=== PATIENT | female | born 1990 ===

== ENCOUNTER 2017-03-26 20:47 | Inpatient (IN) ==
[2017-03-26] MEDS ORDERED: BUTORPHANOL 2 MG/ML VIAL IV PRN (21:07)
[2017-03-26] MEDS ORDERED: ONDANSETRON 4 MG/2 ML VIAL IV PRN (21:07)
[2017-03-26] MEDS ORDERED: MEPERIDINE 50 MG/1 ML VIAL IV PRN (21:07)
[2017-03-26] MEDS ORDERED: SODIUM CHLORIDE 0.9% 100 ML IV ONE (21:08)
[2017-03-26] MEDS ORDERED: AMPICILLIN 2,000 MG VIAL ONE (21:08)
[2017-03-26] MEDS ORDERED: OXYTOCIN/LR 30 UNIT/1,000 ML BAG IV PRN (21:10)
[2017-03-26] MEDS ORDERED: OXYTOCIN/LR 20 UNIT/1,000 ML BAG IV PRN (21:10)
[2017-03-26] MEDS ORDERED: LACTATED RINGERS 1,000 ML IV SCH (21:30)
[2017-03-26] MEDS ORDERED: AMPICILLIN INJ 2,000 MG in SODIUM CHLORIDE 0.9% 50 ML IV SCH (21:30)
[2017-03-26 22:13] LABS: Basophils % 0.1 % (0.0-0.8); Eosinophils % 0.5 % (0.00-10.9); Hematocrit 36.7 VOL% (35.7-47.0); Hemoglobin 12.5 GM/DL (12.0-16.0); Immature Granulocytes % 0.8 %; Immature Granulocytes Absolute 0.07 #; Lymphocytes # 1.4 10*3/uL (1.4-4.0); Lymphocytes % 15.5 % (21.3-54.2); Mean Corpuscular HGB Conc 34.1 GM/DL (32-36); Mean Corpuscular Hemoglobin 33 PG (27-34); Mean Corpuscular Volume 96.1 FL (87-102); Mean Platelet Volume 10.7 FL (9.6-12.0); Monocytes # 0.7 10*3/uL (0.11-0.8); Monocytes % 8.2 % (1.7-12.7); Neutrophils # 6.6 10*3/uL (1.4-7.4); Neutrophils % 74.9 % (38.7-73.9); Platelet Count 283 T/CUMM (130-400); Red Blood Count 3.82 MC/CUMM (3.8-5.5); Red Cell Distribution Width 12.9 % (9.3-17.3); White Blood Count 8.8 T/CUMM (4-12)
[2017-03-26 22:38] LABS: Alanine Aminotransferase 14 U/L (13-56); Albumin 2.5 G/DL (3.4-5.0); Alkaline Phosphatase 145 U/L (45-117); Aspartate Amino Transferase 10 U/L (0-37); Bilirubin,Total < 0.39 MG/DL (0.2-1.0); Blood Urea Nitrogen 7 MG/DL (7-18); Calcium 9.2 MG/DL (8.5-10.1); Glucose 84 MG/DL (74-106); Osmolality,Calculated 275.4 MOS/KG (273-304); Potassium 3.8 MMOL/L (3.5-5.1); Sodium 140 MMOL/L (136-145); Total Protein 6.4 G/DL (6.4-8.3)
[2017-03-26 22:50] LABS: Apearance,Urine Slightly Hazy (Clear); Bacteria,Urine Few /HPF (Few); Bilirubin,Urine Negative (Negative); Blood, Urine Negative (Negative); Glucose,Urine (UA) Negative (Negative); Ketones,Urine 5 mg/dL (Negative); Mucus,Urine Occasional /LPF (Occasional); Nitrite,Urine Positive (Negative); Protein,Urine Negative; RBC,Urine 4 /HPF (0-4); Squamous Epithelial Cell,Urine Occasional /HPF (0-10); Urine Color Yellow (Yellow); Urine Specific Gravity 1.019 (1.001-1.035); WBC,Urine 7 /HPF (0-6)
[2017-03-26 23:22] LABS: HIV Antigen/Antibody Result Nonreactive (Nonreactive); Hepatitis B Surface Ag Result Negative (Negative); Rubella Antibody IgG 15.2 IU/ML
--- NOTE | 2017-03-27 00:29 | OB/GYN History & Physical ---
History of Present Illness Chief complaint: Spontaneous rupture membranes History of present illness: Ms. Anaya is a 27 year old female Patient presented with spontaneous rupture membranes, EDC 05/01/2017 at approximately 35 weeks gestation. Pelvic exam was performed on admission patient is approximately 3-4 cm dilated. heart tones category 1. No vaginal bleeding noted. Contractions were present every 3-5 minutes apart. Patient was allowed to go into labor spontaneously, IV ampicillin was also initiated. Risks benefits were thoroughly discussed nursery was contacted all parties are in agreement. Home Medications Medication Instructions Recorded Confirmed Type Vit No.124/Iron/Folic 1 tablet PO DAILY MDD one tab 03/26/17 03/26/17 History [ Vitamin Tablet] Allergies Allergy/AdvReac Type Severity Reaction Status Date / Time No Known Allergies Allergy Verified 03/26/17 21:04 Medical,Surgical,& Family Hx - Medical History Endocrine: No history of: Diabetes Mellitus (NIDDM) (gestational diabetic) Musculoskeletal: No history of: Amputation Reproductive: No history of: Complication - Surgical History HEENT Surgeries: Patient denies: Thyroid Surgery Abdominal Surgeries: Surgical HX of: Abdominal Surgery, Cholecystectomy Reproductive Surgeries: Patient denies;: Section, Gynecologic Surgery - Family History Family History: Reports;: Family Cancer (mgm), Family Diabetes (mom) Denies;: Family Anesthesia Reaction, Family Heart Disease, Family Hematology , Family Hypertension, Family Psychiatric Problems, Family Stroke, Additional Family History - Social History Smoking Status: Never smoker Frequency of Alcohol Use: None Type of Drug Use: None 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 - Constitutional Vitals: Vital Signs Temp Pulse Resp BP Pulse Ox 03/27/17 00:00 98.6 F 110 H 17 131/70 03/26/17 21:12 98.3 F 90 18 125/57 99 General appearance: no acute distress - Head Head exam: Present: normal inspection - Eye Eye exam: Present: EOMI Pupils: Present: MARIA D - ENT ENT exam: Present: normal exam - Neck Neck exam: Present: normal inspection - Respiratory Respiratory exam: Present: clear to auscultation bilaterally - Breast Breasts: as per HPI Menstruation: as per HPI - Cardiovascular Cardiovascular exam: Present: regular rate and rhythm - GI/Abdominal GI/Abdominal exam: Present: normal bowel sounds - Extremities Exam Extremities exam: Present: normal inspection - Back Exam Back exam: Present: normal inspection - Neurological Exam Neurological exam: Present: oriented X3, normal gait - Psychiatric Psychiatric exam: Present: normal affect - Skin Skin exam: Present: normal color Assessment and Plan (1) Spontaneous rupture of membranes Status: Acute Assessment and plan: Anticipate vaginal delivery, nurse was notified, IV ampicillin was at initiated. Epidural will be obtained if patient request. Current Visit: Yes Results - Labs CBC & BMP: 03/26/17 21:32 03/26/17 21:32 Quality Measures - VTE Contraindication to Pharmacological VTE Prophylaxis: Clinical assessment deems Pt at low risk, no prophalaxis needed
--- NOTE | 2017-03-27 00:53 | Event Note ---
Stage I of labor Admitted with spontaneous rupture membranes at 35 weeks EDC is 05/01/2017 Contractions every 3-5 minutes apart IV ampicillin IV narcotic heart tones category 1 IV Pitocin was initiated at 9+ cm Stage II Male 7 lbs. 5 oz. Apgars were 8 and 1 minute 9 at 5 minutes Cord blood and cord gas obtained Delivery time `1240am Stage III No lacerations Estimated blood loss 250 3 cord vessels Placenta delivered manually Mother stable nurses in attendance
[2017-03-27] MEDS ORDERED: LANOLIN 50% CREAM 0.3 OZ TUBE TOP PRN (00:54)
[2017-03-27] MEDS ORDERED: MEASLES/MUMPS/RUBELLA VACCINE 0.5 ML VIAL SUBCUT ONE (00:54)
[2017-03-27] MEDS ORDERED: HYDROCORTISONE 2.5% RECTAL CREAM 30 GM TUBE TOP PRN (00:54)
[2017-03-27] MEDS ORDERED: RHO(D) IMMUNE GLOBULIN 300 MCG SYRINGE IM ONE (00:54)
[2017-03-27] MEDS ORDERED: BENZOCAINE 20%/MENTHOL 0.5% SPRAY 56 GM CAN TOP PRN (00:54)
[2017-03-27] MEDS ORDERED: DIPH/TET/ACEL PERT BOOSTER VACCINE 0.5 ML VIAL IM ONE (00:54)
[2017-03-27] MEDS ORDERED: WITCH HAZEL PADS 100/JAR TOP PRN (00:54)
[2017-03-27] MEDS ORDERED: ONDANSETRON 4 MG/2 ML VIAL IV PRN (00:54)
[2017-03-27] MEDS ORDERED: OXYTOCIN/LR 20 UNIT/1,000 ML BAG IV ONE (00:54)
[2017-03-27] MEDS ORDERED: BISACODYL 10 MG SUPP RECTAL PRN (00:54)
[2017-03-27] MEDS ORDERED: oxyCODONE/ACETAMINOPHEN 5-325 MG TABLET PO PRN (00:54)
[2017-03-27] MEDS ORDERED: ACETAMINOPHEN 325 MG TABLET PO PRN (00:54)
[2017-03-27] MEDS: IBUPROFEN 800 MG TABLET PO PRN ×2 (02:16→23:05)
[2017-03-27] MEDS: oxyCODONE/ACETAMINOPHEN 5-325 MG TABLET PO PRN ×2 (02:17→23:15)
[2017-03-27 04:12] LABS: Basophils % 0.2 % (0.0-0.8); Hematocrit 36.5 VOL% (35.7-47.0); Hemoglobin 12.3 GM/DL (12.0-16.0); Immature Granulocytes % 0.6 %; Immature Granulocytes Absolute 0.09 #; Lymphocytes % 6.2 % (21.3-54.2); Mean Corpuscular HGB Conc 33.7 GM/DL (32-36); Mean Corpuscular Hemoglobin 33 PG (27-34); Mean Corpuscular Volume 98.1 FL (87-102); Mean Platelet Volume 10.7 FL (9.6-12.0); Monocytes # 0.7 10*3/uL (0.11-0.8); Monocytes % 4.6 % (1.7-12.7); Neutrophils # 14.1 10*3/uL (1.4-7.4); Neutrophils % 88.4 % (38.7-73.9); Platelet Count 293 T/CUMM (130-400); Red Blood Count 3.72 MC/CUMM (3.8-5.5); Red Cell Distribution Width 12.7 % (9.3-17.3); White Blood Count 15.9 T/CUMM (4-12)
[2017-03-27] MEDS: DOCUSATE SODIUM 100 MG CAPSULE PO SCH ×2 (08:20→21:00)
--- NOTE | 2017-03-27 09:16 | OB/GYN Progress Note ---
Assessment and Plan (1) Vaginal delivery Status: Acute Assessment and plan: Initiate routine orders. 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 Bonding well with infant. Exam CLINICAL DATA ASSISTANT - Constitutional Vitals: Vital Signs Temp Pulse Resp BP Pulse Ox 03/27/17 07:23 97.7 F 87 18 110/64 97 03/27/17 05:00 97.8 F 82 18 120/70 98 03/27/17 04:00 97.9 F 81 18 113/64 98 03/27/17 03:00 97.9 F 84 18 128/70 98 03/27/17 02:30 97.5 F L 82 18 132/68 98 03/27/17 02:00 97.4 F L 80 18 133/69 98 03/27/17 00:00 98.6 F 110 H 17 131/70 03/26/17 21:12 98.3 F 90 18 125/57 99 General appearance: no acute distress - Antepartum / Post Post Exam Breast: bilateral: normal Abdomen obstetrics: Present: bowel sounds normal Vagina: Present: discharge (Moderate lochia rubra) Uterus exam: Present: enlarged (Fundus firm and midline) Anus/Rectum: Present: normal perianal skin - Respiratory Respiratory exam: Present: clear to auscultation bilaterally - Cardiovascular Cardiovascular exam: Present: regular rate and rhythm - GI/Abdominal GI/Abdominal exam: Present: normal bowel sounds, soft - Extremities Exam Extremities exam: Present: normal inspection - Neurological Exam Neurological exam: Present: alert, oriented X3 - Psychiatric Psychiatric exam: Present: normal affect, normal mood - Skin Skin exam: Present: normal color, warm Results - Labs CBC & BMP: 03/27/17 03:58 03/26/17 21:32
[2017-03-27] MEDS ORDERED: NITROFURANTOIN MACRO/MONO 100 MG CAPSULE PO SCH ×2 (16:07→21:00)
[2017-03-28] MEDS: DOCUSATE SODIUM 100 MG CAPSULE PO SCH ×3 (08:41→21:32)
[2017-03-28] MEDS: NITROFURANTOIN MACRO/MONO 100 MG CAPSULE PO SCH ×2 (08:42→21:31)
--- NOTE | 2017-03-28 09:00 | OB/GYN Progress Note ---
Assessment and Plan (1) Vaginal delivery Status: Acute Assessment and plan: Initiate routine orders. 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 Bonding well with infant Exam PAINT ROLLER COVERMAKER - Constitutional Vitals: Vital Signs Temp Pulse Resp BP Pulse Ox 03/28/17 07:14 97.4 F L 78 20 119/66 97 03/28/17 04:15 98.0 F 70 18 107/58 98 03/28/17 00:00 98.2 F 85 18 104/57 98 03/27/17 20:00 97.7 F 85 18 105/50 98 03/27/17 15:39 98.4 F 80 20 102/63 98 03/27/17 11:24 98.4 F 78 20 91/53 98 General appearance: no acute distress - Antepartum / Post Post Exam Breast: bilateral: normal Vagina: Present: normal moisture, discharge (Light lochia rubra) Uterus exam: Present: enlarged (Fundus firm and midline) Anus/Rectum: Present: normal perianal skin - Gyencological / Post Surgical Post Surgical Exam Lungs: bilateral: normal Chest: Normal S1, Normal S2 Extremities PAINT ROLLER COVERMAKER: Present: normal Abdomen obstetrics progress note: Present: normal appearance Incision OB: Present: normal, intact - Neck Neck exam: Present: normal inspection - Respiratory Respiratory exam: Present: clear to auscultation bilaterally - Cardiovascular Cardiovascular exam: Present: regular rate and rhythm - GI/Abdominal GI/Abdominal exam: Present: normal bowel sounds, soft - Extremities Exam Extremities exam: Present: normal inspection - Neurological Exam Neurological exam: Present: alert, oriented X3 - Psychiatric Psychiatric exam: Present: normal affect, normal mood - Skin Skin exam: Present: normal color, warm Results - Labs CBC & BMP: 03/27/17 03:58 03/26/17 21:32
[2017-03-28] MEDS: IBUPROFEN 800 MG TABLET PO PRN (19:38)
[2017-03-29 07:21] VITALS: BP 116/63
[2017-03-29] MEDS: NITROFURANTOIN MACRO/MONO 100 MG CAPSULE PO SCH (08:55)
[2017-03-29] MEDS: DOCUSATE SODIUM 100 MG CAPSULE PO SCH (08:55)
[2017-03-29] MEDS: IBUPROFEN 800 MG TABLET PO PRN (08:57)
--- NOTE | 2017-03-29 09:22 | Discharge Summary ---
Hospital Course - Hospital Course Hospital Course: Ms. Anaya presented to the labor department in active labor. She subsequently delivered a viable with no complications. She has followed a normal course and she is not well. Her bleeding is minimal with no odor. Her vital signs and lab values are stable. She is ambulating without difficulty. Her fundus is firm and midline. She is bonding well with her infant. Contraception options has been discussed with this patient and she desires to use the Depo-Provera. Patient will receive a Depakote injection prior to discharge. She will be discharged to home with prescriptions for pain and a follow-up appointment in our office. Diagnosis - Discharge Diagnosis (1) Vaginal delivery Status: Acute Specialty Discharge - Follow Up or Referrals Follow up with: Rafa Menard MD [Physician] - (Follow up in 6 weeks.) Discharge Plan - Discharge Data Disposition: Disch To Home/Self Care Condition at Discharge: Stable Discharge Diet: advance to your usual diet, regular diet Activity: resume usual activities as tolerated Hygiene: no restrictions, may shower Weight Bearing at Discharge: weight bear as tolerated Driving: no restrictions Contact your physician if you experience:: fever over 101, Shortness of breath, pain uncontrolled by pain medications - Discharge Medications New Acetamin/Codeine 300-30 Tab [Tylenol/Codeine #3] 2 tablet PO Q4H PRN #30 tablet PRN Reason: Pain Mild To Moderate (1-7) Ibuprofen Tab [Motrin Tab] 800 mg PO Q6H PRN #30 tablet PRN Reason: Pain Moderate (4-7) No Action Vit No.124/Iron/Folic [ Vitamin Tablet] 1 tablet PO DAILY MDD one tab - Follow Up or Referral - Forms/Instructions Instructions: Depression (GEN), Perineal Care (DC), Vaginal Delivery (DC), Bleeding (DC) Exam - Constitutional Vitals: Period Temp Pulse Resp BP Sys/Solomon Pulse Ox Last 24 Hr 97.3 F-98.9 F 78-93 18-20 108-137/60-78 97-99 General appearance: no acute distress - Head Head exam: Present: normal inspection - Respiratory Respiratory exam: Present: clear to auscultation bilaterally - Cardiovascular Cardiovascular exam: Present: regular rate and rhythm - GI/Abdominal GI/Abdominal exam: Present: normal bowel sounds, soft - Extremities Exam Extremities exam: Present: normal inspection - Back Exam Back exam: Present: normal inspection - Neurological Exam Neurological exam: Present: alert, oriented X3 - Psychiatric Psychiatric exam: Present: normal affect, normal mood - Skin Skin exam: Present: normal color, warm DS: Provider Date of admission: 03/26/17 21:07 Primary care physician: Jinny Crouch MD Attending physician on admission: Rafa Menard MD Consults: 03/27/17 00:54 Consult to General Milling Superintendent [CONS] Routine Consult General Milling Superintendent: Breast Feeding Discharging clinician: Marian Sandoval CNM Expected date of discharge: 03/29/17
--- NOTE | 2017-03-29 18:18 | Pathology Report from [facility] ---
[employer] ACCESSION # : [id number] PATIENT NAME : Mateo Horne ORDERING DR : GENEVIEVE CHARLES MD CLINICAL HX: IUP @ 34-6/7 weeks. Spontaneous rupture of membranes. Active labor. Gestational diabetic. POST-OP DX: Same SPECIMEN INFO: Placenta GROSS DESCRIPTION: Received fresh labeled with the patients name and consists of a 614 gram placenta which measures 19.5 x 18.0 x 3.0 cm. membranes are pink-richadrs and translucent. The umbilical cord measures 25.5 cm, contains three vessels and is eccentrically inserted. The surface is blue-baez and intact. The maternal surface is hemorrhagic and intact with a few scattered calcifications seen. Sectioning reveals no gross abnormalities. Sections submitted: A membranes and cord, B and maternal surfaces. DIAGNOSIS FOR MATEO HORNE: PLACENTA, 34.6 WEEKS GESTATIONAL AGE, DELIVERY: Mature placenta, 614 gms trimmed weight. Trivascular umbilical cord, 25.5 cm in length. Unremarkable membranes. COLLECTED DATE: 03/27/2017 [facility] REPORT DATE: 03/28/2017 ELECTRONICALLY SIGNED BY: Yanira Brown M.D. 03/28/2017 - 10:40:20 ALEYDA
== END 2017-03-29 17:27 | disposition home or self-care (01) | DRG 560 ==
LOC: N.LDOUT 20:47 → N.LD 20:56 → N.OB 03-27 02:00
PROVIDERS: ADMIT Obstetrics & Gynecology; ATTEND Obstetrics & Gynecology